=== PATIENT | male | born 1970 | race Caucasian/White ===

== ENCOUNTER 2022-04-18 01:28 | Emergency (ER) | payer BC ==
[~2022-04-18] VITALS: Ht 185.4 cm; Wt 88.2 kg
[2022-04-18 01:34] VITALS: BP 103/50
[2022-04-18] MEDS: ondansetron/PF 4mg/2ml inj IV ONE (01:42)
[2022-04-18] MEDS: ondansetron 4mg rapidly disintigrating tab PO ONE (02:12)
== END 2022-04-18 04:29 | disposition left against medical advice (07) ==
LOC: ER 01:29
DX: R11.2 Nausea with vomiting, unspecified (principal); R06.02 Shortness of breath
CPT/HCPCS: 71046; 93005; 99283